=== PATIENT | male | born 1975 | race Caucasian/White ===

== ENCOUNTER 2016-08-21 22:54 | Emergency (ER) | payer OTHER ==
[~2016-08-21] VITALS: Ht 182.9 cm; Wt 76.0 kg
[~2016-08-21 22:54] MED LIST: BACT800T5 PO; CELE10TA9 PO; CLIN1CAP5 PO; CLON2TAB PO; ROXI30TA14 PO; SULF-154 PO; TIZA4 PO
[2016-08-21 23:02] VITALS: BP 147/89; PULSE 103; RESP 18; TEMP 98.4; O2SAT 98
[2016-08-21] MEDS ORDERED: OXYC30TA PO (23:10)
[2016-08-21] MEDS ORDERED: TIZA4 PO (23:10)
--- NOTE | 2016-08-21 23:11 | PD ---
HPI Chief Complaint: Psychiatric Symptoms Time Seen by Provider: 23:05 Travel History International Travel<30 days: No Contact w/Intl Traveler<30days: No History of Present Illness HPI The patient is a 41 year old male who presents to the [facility] emergency department with a history of reportedly accidentally overdosing on heroin prior to arrival. He reports that he does not normally use heroin and was not sure how much to inject. The patient developed agonal respirations and his friend called ambulance services. The patient was noted to have O2 saturations in the 50s on their arrival with agonal breathing. The patient continued to have a pulse with sinus tachycardia in the 130s. The patient was bagged while IV access was obtained and the patient was given Narcan 0.4 mg IV. The patient became awake and alert. The patient unfortunately was belligerent and was refusing to cooperate, therefore the police placed him under a Cain act due to a concern for his safety. The patient reports that he does have a history of depression. He is not on medication for it currently. He denies having suicidal or homicidal ideations at this time. He reports that he has been Cain acted in the past, a year ago when he became depressed over a friend dying. Otherwise on review of systems, the patient denies any recent fevers, cough, congestion, neck pain, chest pain, shortness of breath, abdominal pain, vomiting, diarrhea, urinary symptoms, or neurologic symptoms. [facility] Past Medical History Narrative Medical The patient's past medical history is significant for chronic back pain, headaches, degenerative disc disease. Anxiety: Yes Depression: Yes Cancer: No Cardiovascular Problems: No Diabetes: No Genitourinary: No Hepatitis: Yes (HEPATITIS B,C) Immune Disorder: No Neurologic: Yes Psychiatric: Yes Reproductive: No Respiratory: No Seizures: Yes (when using crack cocaine last 2006) Thyroid Disease: No Past Surgical History Narrative Surgical The patient's past surgical history is reportedly none. AICD: No Arteriovenous Shunt: No Joint Replacement: No Pacemaker: No Social History Alcohol Use: No Tobacco Use: Yes (OCCASIONALLY ) Substance Use: Yes Allergies-Medications (Allergen,Severity, Reaction): Coded Allergies: *MDRO Multi-Drug Resistant Organism (Verified Adverse Reaction, Unknown, 11/28/15) MRSA (thigh wound) - 09/20/2015; MRSA (knee-11/24/15) Reported Meds & Prescriptions Reported Meds & Active Scripts Active Reported Zanaflex (Tizanidine HCl) 4 Mg Tab 4 Mg PO TID Oxycodone (Oxycodone HCl) 30 Mg Tab 30 Mg PO Q6H PRN Narrative Medication Oxycodone and Zanaflex are prescribed to him due to his chronic back pain and muscle spasms. Review of Systems Except as stated in HPI: all other systems reviewed are Neg General / Constitutional: No: Fever Eyes: No: Visual changes HENT: No: Headaches Cardiovascular: No: Chest Pain or Discomfort Respiratory: Positive: Shortness of Breath Gastrointestinal: No: Abdominal Pain Genitourinary: No: Dysuria Musculoskeletal: No: Pain Skin: No Rash Neurologic: Positive: Change in Mentation, No: Weakness, Focal Abnormalities, Coordination Problem, Slurred Speech, Sensory Disturbance Psychiatric: Positive: Substance Abuse, No: Depression Endocrine: No: Polydipsia Hematologic/Lymphatic: No: Easy Bruising Physical Exam Narrative General: The patient is a well-developed well-nourished male in no acute distress. Head and Neck exam: Head is normocephalic atraumatic. Eyes: EOMI, pupils are equal round and reactive to light. Nose: Midline septum with pink mucous membranes Mouth: Dentition unremarkable. Moist mucus membranes. Posterior oropharynx is not erythematous. No tonsillar hypertrophy. Uvula midline. Airway patent. Neck: No palpable lymphadenopathy. No nuchal rigidity. No thyromegaly. Cardiovascular: Regular rate and rhythm without murmurs, gallops, or rubs. Lungs: Clear to auscultation bilaterally. No wheezes, rhonchi, or rales. Abdomen: Soft, without tenderness to palpation in all 4 quadrants of the abdomen. No guarding, rebound, or rigidity. Normal bowel sounds are audible. No tenderness on palpation of McBurney's point. Negative [place] sign. Extremities: No clubbing, cyanosis, or edema. 2+ pulses in all 4 extremities. No calf tenderness on palpation. Back: No costovertebral angle tenderness to palpation. Neurologic Exam: Grossly nonfocal. Skin Exam: No rash noted. Intact skin that is warm and dry. Data Data Last Documented VS Vital Signs Date Time Temp Pulse Resp B/P Pulse Ox O2 Delivery O2 Flow Rate FiO2 08/22/16 06:10 86 19 123/65 99 Room Air 08/21/16 23:02 98.4 Orders Electrocardiogram (08/21/16 23:05) Complete Blood Count With Diff (08/21/16 23:05) Comprehensive Metabolic Panel (08/21/16 23:05) Urinalysis - C+S If Indicated (08/21/16 23:05) Chest, Single Ap (08/21/16 23:05) Iv Access Insert/Monitor (08/21/16 23:05) Ecg Monitoring (08/21/16 23:05) Oximetry (08/21/16 23:05) Psych Screen (08/21/16 23:05) Drug Screen, Random Urine (08/21/16 23:05) Alcohol (Ethanol) (08/21/16 23:05) Salicylates (Aspirin) (08/21/16 23:05) Tylenol (Acetaminophen) (08/21/16 23:05) Sodium Chlorid 0.9% 500 Ml Inj (Ns 500 M (08/21/16 23:15) Diet Regular Basic (08/22/16 Breakfast) Labs Laboratory Tests Test 08/21/16 08/22/16 23:15 06:11 White Blood Count 6.9 TH/MM3 Red Blood Count 4.54 MIL/MM3 Hemoglobin 12.7 GM/DL Hematocrit 37.5 % Mean Corpuscular Volume 82.6 FL Mean Corpuscular Hemoglobin 28.0 PG Mean Corpuscular Hemoglobin 33.9 % Concent Red Cell Distribution Width 15.5 % Platelet Count 249 TH/MM3 Mean Platelet Volume 7.6 FL Neutrophils (%) (Auto) 56.0 % Lymphocytes (%) (Auto) 34.7 % Monocytes (%) (Auto) 6.7 % Eosinophils (%) (Auto) 2.1 % Basophils (%) (Auto) 0.5 % Neutrophils # (Auto) 3.8 TH/MM3 Lymphocytes # (Auto) 2.4 TH/MM3 Monocytes # (Auto) 0.5 TH/MM3 Eosinophils # (Auto) 0.1 TH/MM3 Basophils # (Auto) 0.0 TH/MM3 CBC Comment DIFF FINAL Differential Comment Salicylates Level LESS THAN 1.7 MG/DL Sodium Level 139 MEQ/L Potassium Level 3.7 MEQ/L Chloride Level 104 MEQ/L Carbon Dioxide Level 24.9 MEQ/L Anion Gap 10 MEQ/L Blood Urea Nitrogen 16 MG/DL Creatinine 1.58 MG/DL Estimat Glomerular Filtration 49 ML/MIN Rate Random Glucose 121 MG/DL Calcium Level 9.6 MG/DL Total Bilirubin 0.5 MG/DL Aspartate Amino Transf 32 U/L (AST/SGOT) Alanine Aminotransferase 34 U/L (ALT/SGPT) Alkaline Phosphatase 143 U/L Total Protein 7.2 GM/DL Albumin 3.6 GM/DL Acetaminophen Level LESS THAN 2.0 MCG/ML Ethyl Alcohol Level LESS THAN 3 MG/DL Urine Color YELLOW Urine Turbidity CLEAR Urine pH 5.5 Urine Specific [place] 1.016 Urine Protein TRACE mg/dL Urine Glucose (UA) NEG mg/dL Urine Ketones NEG mg/dL Urine Occult Blood NEG Urine Nitrite NEG Urine Bilirubin NEG Urine Urobilinogen LESS THAN 2.0 MG/DL Urine Leukocyte Esterase NEG Urine RBC 1 /hpf Urine WBC 3 /hpf Microscopic Urinalysis Comment CULT NOT INDICATED Urine Opiates Screen POS Urine Barbiturates Screen NEG Urine Amphetamines Screen POS Urine Benzodiazepines Screen POS Urine Cocaine Screen POS Urine Cannabinoids Screen NEG MDM Medical Decision Making Medical Screen Exam Complete: Yes Emergency Medical Condition: Yes Medical Record Reviewed: Yes Interpretation(s) Last Impressions Chest X-Ray 08/21/16 3409 Signed Impressions: Service Date/Time: Sunday, August 21, 2016 23:14 - CONCLUSION: No evidence of acute cardiopulmonary disease. Rodolfo Mead MD Differential Diagnosis Accidental heroin overdose, versus intentional overdose, versus substance induced mood disorder, versus exacerbation of depression Narrative Course During the course of the patients emergency department visit, the patients history, examination, and differential diagnosis were reviewed with the patient. The patient had IV access obtained and blood work sent for analysis. The patient was placed on a monitoring and evaluation advisor with oximetry and blood pressure monitoring. The patient was placed under a Cain act by the police. Cain act will be reviewed. The patient will have a psychiatric screen. The patient will be observed in the emergency department for any change in his mentation or respiratory depression as the Narcan wears off. The patient had an ECG done on arrival that shows a sinus rhythm heart rate of 84, QRS duration is 92 ms, QTC 427 ms, no acute ST segment elevation or depression, T waves are inverted in V1. The patient was initially provided normal saline a 500 mL bolus. The patients laboratory studies were reviewed and remarkable for a white count of 6.9, hemoglobin 12.7, platelets 249 with a normal differential, CMP is remarkable for creatinine of 1.58, glucose 121, alkaline phosphatase 143, urine drug screen is positive for opiates, amphetamines, benzodiazepine, and cocaine. Salicylate is less than 1.7, acetaminophen less than 2, alcohol less than 3, urinalysis is unremarkable. Radiology studies were reviewed and remarkable for a chest x-ray that shows no acute cardiopulmonary disease. The patient remained awake, responsive during his emergency department observation. The patient has been medically cleared for evaluation by the psychiatric screener under a Cain act. Diagnosis Primary Impression: Accidental heroin overdose Qualified Code: T40.1X1A - Accidental heroin overdose, initial encounter Oumou Smith MD Aug 21, 2016 23:11
[2016-08-21 23:15] VITALS: RESP 18; O2SAT 99
[2016-08-21] MEDS ORDERED: SODIUM CHLORID 0.9% 500 ML INJ 500 ML IV ONE (23:15)
[2016-08-21 23:39] LABS: AUTOMATED NEUTROPHIL # 3.8 TH/MM3 (1.8-7.7); BASOPHIL % 0.5 % (0.0-2.0); EOSINOPHIL # 0.1 TH/MM3 (0-0.4); EOSINOPHIL % 2.1 % (0.0-4.0); HEMATOCRIT 37.5 % (39.0-51.0); HEMO FLAGS DIFF FINAL; LYMPH % 34.7 % (9.0-44.0); LYMPHOCYTE # 2.4 TH/MM3 (1.0-4.8); MEAN CELL VOLUME 82.6 FL (80.0-100.0); MEAN CORPUSCULAR HGB CONC 33.9 % (32.0-36.0); MONO % 6.7 % (0.0-8.0); PLATELET COUNT 249 TH/MM3 (150-450); RED BLOOD COUNT 4.54 MIL/MM3 (4.50-5.90); RED CELL DISTRIBUTION WIDTH 15.5 % (11.6-17.2); WHITE BLOOD COUNT 6.9 TH/MM3 (4.0-11.0)
--- NOTE | 2016-08-21 23:42 | RADRPT ---
EXAM DATE/TIME: 08/21/2016 23:14 [place] COMPARISON: No previous studies available for comparison. INDICATIONS : Cough. MEDICAL HISTORY : Hepatitis C. Hepatitis B. IV drug abuse. Seizures. Chronic back pain. Asthma, Multiple skin infection s and abscesses. Paresthesia SURGICAL HISTORY : None. ENCOUNTER: Initial ACUITY: 1 day PAIN SCORE: 0/10 LOCATION: Bilateral chest FINDINGS: A single view of the chest demonstrates the lungs to be symmetrically aerated without evidence of mas s, infiltrate or effusion. The cardiomediastinal contours are unremarkable. Osseous structures are intact. CONCLUSION: No evidence of acute cardiopulmonary disease. Rodolfo Mead MD on August 21, 2016 at 23:40 Board Certified Radiologist. This report was verified electronically.
[2016-08-22 00:15] LABS: ALKALINE PHOSPHATASE 143 U/L (45-117); ALT (GPT) 34 U/L (12-78); ANION GAP 10 MEQ/L (5-15); AST (GOT) 32 U/L (15-37); BICARBONATE 24.9 MEQ/L (21.0-32.0); BLOOD UREA NITROGEN 16 MG/DL (7-18); CHLORIDE 104 MEQ/L (98-107); GLOMERULAR FILTRATION RATE 49 ML/MIN (>89); POTASSIUM 3.7 MEQ/L (3.5-5.1); SODIUM (NA) 139 MEQ/L (136-145); TOTAL BILIRUBIN ADULT 0.5 MG/DL (0.2-1.0)
[2016-08-22 00:16] LABS: ACETAMINOPHEN LESS THAN 2.0 MCG/ML (10.0-30.0)
[2016-08-22 01:00] VITALS: BP 145/82; PULSE 76; RESP 16; O2SAT 98
[2016-08-22 02:14] VITALS: BP 127/81; PULSE 81; RESP 18; O2SAT 100
[2016-08-22 06:10] VITALS: BP 123/65; PULSE 86; RESP 19; O2SAT 99
[2016-08-22 06:45] LABS: BLOOD, URINE NEG (NEG); COMMENT (UR) CULT NOT INDICATED; CULTURE IF INDICATED CULT NOT INDICATED; GLUCOSE,URINE NEG (NEG); KETONE, URINE NEG (NEG); NITRITE,URINE NEG (NEG); PH, URINE 5.5 (5.0-8.5); URINE COLOR YELLOW (YELLW/STRAW)
[2016-08-22 06:54] LABS: AMPHETAMINE, URINE POS (NEG); BARBITURATES, URINE NEG (NEG); COCAINE, URINE POS (NEG)
--- NOTE | 2016-08-22 10:57 | EKG ---
Date Performed: 08/22/2016 Time Performed: 00:26:05 PTAGE: 41 years EKG: Sinus rhythm NORMAL ECG PREVIOUS TRACING : 09/19/2015 22.42 Compared to prior tracing no significant change DOCTOR: Robel Parsons Interpretating Date/Time 08/22/2016 10:56:13
--- NOTE | 2016-08-22 11:32 | PD.PSY.CON ---
Provisional Diagnosis Admission Date Peytona I. Polysubstance dependence, including amphetamines, cocaine, heroine, benzodiazepines, cannabis, self reported anxiety and PTSD Peytona II. Deferred Peytona III. HTN Peytona IV. History of multiple drug use Peytona V. 55 History of Present Illness Service Psychiatry Consult Requested By Primary Care Physician No Primary Care Physician HPI The patient is a 41 year old man, who lives with a friend in [facility], single, unemployed, with psychiatric history of self reported PTSD, anxiety, polysubstance dependence, including heroin, crack cocaine, cannabis, amphetamines, benzodiazepines, no previous psychotic hospitalizations, no previous suicidal attempts, medical history hypertension, who presents to the [facility] emergency department with a history of reportedly accidentally overdosing on heroin prior to arrival. He reports that he does not normally use heroin and was not sure how much to inject. The patient developed agonal respirations and his friend called ambulance services. The patient was noted to have O2 saturations in the 50s on their arrival with agonal breathing. The patient continued to have a pulse with sinus tachycardia in the 130s. The patient was bagged while IV access was obtained and the patient was given Narcan 0.4 mg IV. The patient became awake and alert. The patient was belligerent and was refusing to cooperate, therefore the police placed him under a Cain act due to a concern for his safety. On psychiatric evaluation today patient is clinically sober, requesting to be discharged. Patient clarifies that he uses drugs every day, he says that is his choice, he is not interested in detox/rehabilitation. He reports good mood, denies depression, denies anxiety, denies suicidal or homicidal ideation, denies visual and auditory hallucinations. He is not on medication for it currently. After episode of aggressive behavior last night patient has been calm, cooperative and easy to deal with. Oriented 3. Reports daily use of "what ever drug I find". Review of Systems Constitutional: DENIES: Diaphoretic episodes, Fatigue, Fever, Weight gain, Weight loss, Chills, Dizziness, Change in appetite, Night Sweats Endocrine: DENIES: Heat/cold intolerance, Polydipsia, Polyuria, Polyphagia Ears, nose, mouth, throat: DENIES: Tinnitus, Hearing loss, Vertigo, Nasal discharge, Oral lesions, Throat pain, Hoarseness, Ear Pain, Running Nose, Epistaxis, Sinus Pain, Toothache, Odynophagia Respiratory: DENIES: Apneas, Cough, Snoring, Wheezing, Hemoptysis, Sputum production, Shortness of breath Cardiovascular: DENIES: Chest pain, Palpitations, Syncope, Dyspnea on Exertion , PND, Lower Extremity Edema, Orthopnea, Claudication Gastrointestinal: DENIES: Abdominal pain, Black stools, Bloody stools, Constipation, Diarrhea, Nausea, Vomiting, Difficulty Swallowing, Anorexia Genitourinary: DENIES: Sexual dysfunction, Urinary frequency, Urinary incontinence, Urgency, Hematuria, Dysuria, Nocturia, Penile Discharge, Testicular Pain, Testicular Swelling Integumentary: DENIES: Abnormal pigmentation, Nail changes, Pruritus, Rash Hematologic/lymphatic: DENIES: Bruising, Lymphadenopathy Immunologic/allergic: DENIES: Eczema, Urticaria Neurologic: DENIES: Abnormal gait, Headache, Localized weakness, Paresthesias, Seizures, Speech Problems, Tremor, Poor Balance Psychiatric: DENIES: Anxiety, Confusion, Mood changes, Depression, Hallucinations, Agitation, Suicidal Ideation, Homicidal Ideation, Delusions Past Family Social History Coded Allergies: *MDRO Multi-Drug Resistant Organism (Verified Adverse Reaction, Unknown, 11/28/15) MRSA (thigh wound) - 09/20/2015; MRSA (knee-11/24/15) Reported Medications Tizanidine (Zanaflex)4 Mg Tab4 Mg PO TID Ref 0 08/21/16 Oxycodone 30 Mg Tab30 Mg PO Q6H PRN (PAIN) Ref 0 08/21/16 Family History Patient denies family psychiatric history Social History Patient was born and raised in [place], he lives in [place] with a friend, unemployed, single, highest level of education is high school Patient's Strengths (min. 2) Verbal communication Physical Exam Physical exam, no withdrawal symptoms, no tremors, no EPS, no stiffness, no psychomotor retardation or agitation Vital Signs Vital Signs Date Time Temp Pulse Resp B/P Pulse Ox O2 Delivery O2 Flow Rate FiO2 08/22/16 06:10 86 19 123/65 99 Room Air 08/21/16 23:02 98.4 Lab Results Labs Laboratory Tests Test 08/21/16 08/22/16 23:15 06:11 White Blood Count 6.9 TH/MM3 Red Blood Count 4.54 MIL/MM3 Hemoglobin 12.7 GM/DL Hematocrit 37.5 % Mean Corpuscular Volume 82.6 FL Mean Corpuscular Hemoglobin 28.0 PG Mean Corpuscular Hemoglobin 33.9 % Concent Red Cell Distribution Width 15.5 % Platelet Count 249 TH/MM3 Mean Platelet Volume 7.6 FL Neutrophils (%) (Auto) 56.0 % Lymphocytes (%) (Auto) 34.7 % Monocytes (%) (Auto) 6.7 % Eosinophils (%) (Auto) 2.1 % Basophils (%) (Auto) 0.5 % Neutrophils # (Auto) 3.8 TH/MM3 Lymphocytes # (Auto) 2.4 TH/MM3 Monocytes # (Auto) 0.5 TH/MM3 Eosinophils # (Auto) 0.1 TH/MM3 Basophils # (Auto) 0.0 TH/MM3 CBC Comment DIFF FINAL Differential Comment Salicylates Level LESS THAN 1.7 MG/DL Sodium Level 139 MEQ/L Potassium Level 3.7 MEQ/L Chloride Level 104 MEQ/L Carbon Dioxide Level 24.9 MEQ/L Anion Gap 10 MEQ/L Blood Urea Nitrogen 16 MG/DL Creatinine 1.58 MG/DL Estimat Glomerular Filtration 49 ML/MIN Rate Random Glucose 121 MG/DL Calcium Level 9.6 MG/DL Total Bilirubin 0.5 MG/DL Aspartate Amino Transf 32 U/L (AST/SGOT) Alanine Aminotransferase 34 U/L (ALT/SGPT) Alkaline Phosphatase 143 U/L Total Protein 7.2 GM/DL Albumin 3.6 GM/DL Acetaminophen Level LESS THAN 2.0 MCG/ML Ethyl Alcohol Level LESS THAN 3 MG/DL Urine Color YELLOW Urine Turbidity CLEAR Urine pH 5.5 Urine Specific [place] 1.016 Urine Protein TRACE mg/dL Urine Glucose (UA) NEG mg/dL Urine Ketones NEG mg/dL Urine Occult Blood NEG Urine Nitrite NEG Urine Bilirubin NEG Urine Urobilinogen LESS THAN 2.0 MG/DL Urine Leukocyte Esterase NEG Urine RBC 1 /hpf Urine WBC 3 /hpf Microscopic Urinalysis Comment CULT NOT INDICATED Urine Opiates Screen POS Urine Barbiturates Screen NEG Urine Amphetamines Screen POS Urine Benzodiazepines Screen POS Urine Cocaine Screen POS Urine Cannabinoids Screen NEG Mental Status Examination Appearance man, good hygiene, age appearing, calm and cooperative Speech: Unremarkable Orientation: x3 Memory: Unremarkable Thought Process: Logical Thought Content: Unremarkable Hallucination Type: None Suicidal Ideation: No Homicidal Ideation: No Previous Homicide Attempts: No Insight: Good Affect: Good Mood: Appropriate Motor Activity: Normal gait Assessment & Plan Problem List: (1) Polysubstance dependence Assessment & Plan: On psychiatric evaluation today the patient does not present any agitation, no aggressive behavior, no hostility, he is calm, cooperative and even pleasant. Patient denies symptoms of depression, anxiety, az or psychosis. Patient denies suicidal and homicidal ideation, he denies visual and auditory hallucinations. Patient is now clinically sober, even though detox was offered to the patient he declined. Initial aggressive behavior and agitation in the ER was probably secondary to substance intoxication, patient was positive for amphetamines, cocaine, heroine and benzodiazepines. At this moment the patient does not meet criteria for psychiatric admission. Extensive support, motivation and psycho education provided. Cain act will be lifted. ICD Code: F19.20 Assessment & Plan Estimated LOS: Jethro Goldsmith MD Aug 22, 2016 11:32
== END 2016-08-22 09:18 | disposition home or self-care (01) ==
LOC: NEPE 22:54 → NEPJ 08-22 09:18
DX: T40.1X1A Poisoning by heroin, accidental (unintentional), initial encounter (principal); R00.0 Tachycardia, unspecified
CPT/HCPCS: 71010; 80053; 80307; 81001; 85025; 93005; 96360; 99285; J7040

== ENCOUNTER 2017-03-03 11:01 | Emergency (ER) | payer SELFPAY ==
[~2017-03-03] VITALS: Ht 175.3 cm; Wt 75.0 kg
[~2017-03-03 11:01] MED LIST changes: -BACT800T5 PO; -CELE10TA9 PO; -CLIN1CAP5 PO; -CLON2TAB PO; +OXYC30TA PO; -ROXI30TA14 PO; -SULF-154 PO
--- NOTE | 2017-03-03 11:11 | PD ---
HPI Chief Complaint: overdose Time Seen by Provider: 11:07 Travel History International Travel<30 days: No Contact w/Intl Traveler<30days: No Traveled to known affect area: No History of Present Illness HPI The patient is a 42-year-old male who presents to the emergency department via EMS after an accidental opiate overdose. According to EMS the patient was found unresponsive, breathing on his own, from an apparent opiate overdose. The patient apparently thought he was injecting heroin when he apparently injected fentanyl. The patient was administer Narcan prior to arrival, upon arrival the patient's GCS is 15. He is awake, alert, talking. The patient does state his friend's place ice down his pants in an attempt to wake him up. He does have a history of previous overdose. The patient does not want any medical treatment upon arrival and is asking to leave the emergency department. He denies any suicidal ideation, states he overdose was accidental. He denies any chest pain, shortness breath, nausea, vomiting, or abdominal pain. PFSH Past Medical History Anxiety: Yes Depression: Yes Cancer: No Cardiovascular Problems: No Diabetes: No Diminished Hearing: No Genitourinary: No Hepatitis: Yes (HEPATITIS B,C) Immune Disorder: No Neurologic: Yes Psychiatric: Yes (PTSD) Reproductive: No Respiratory: No Seizures: Yes (when using crack cocaine last 2006) Thyroid Disease: No Past Surgical History AICD: No Arteriovenous Shunt: No Joint Replacement: No Pacemaker: No Social History Alcohol Use: No Tobacco Use: Yes (OCCASIONALLY ) Substance Use: Yes Allergies-Medications (Allergen,Severity, Reaction): Coded Allergies: *MDRO Multi-Drug Resistant Organism (Verified Adverse Reaction, Unknown, 11/28/15) MRSA (thigh wound) - 09/20/2015; MRSA (knee-11/24/15) Reported Meds & Prescriptions Reported Meds & Active Scripts Active Reported Zanaflex (Tizanidine HCl) 4 Mg Tab 4 Mg PO TID Oxycodone (Oxycodone HCl) 30 Mg Tab 30 Mg PO Q6H PRN Review of Systems Except as stated in HPI: all other systems reviewed are Neg HENT: No: Lightheadedness Cardiovascular: No: Chest Pain or Discomfort, Diaphoresis Respiratory: No: Shortness of Breath Gastrointestinal: No: Nausea, Vomiting, Abdominal Pain Psychiatric: Positive: Substance Abuse, No: Suicidal Ideations Physical Exam Narrative GENERAL: Awake, alert, pleasant 42-year-old male who appears his stated age and is in no acute respiratory distress. SKIN: Focused skin assessment warm/dry. HEAD: Atraumatic. Normocephalic. EYES: Pupils equal and round. No scleral icterus. No injection or drainage. ENT: No nasal bleeding or discharge. Mucous membranes pink and moist. NECK: Trachea midline. No JVD. CARDIOVASCULAR: Regular rate and rhythm. No murmur appreciated. RESPIRATORY: No accessory muscle use. Clear to auscultation. Breath sounds equal bilaterally. MUSCULOSKELETAL: No obvious deformities. No clubbing. No cyanosis. No edema. NEUROLOGICAL: Awake and alert. No obvious cranial nerve deficits. Motor grossly within normal limits. Normal speech. Alert and oriented 5. Follows commands without difficulty. PSYCHIATRIC: Appropriate mood and affect; insight and judgment normal. MDM Medical Decision Making Medical Screen Exam Complete: Yes Emergency Medical Condition: Yes Medical Record Reviewed: Yes Differential Diagnosis Differential diagnosis includes opiate overdose, fentanyl overdose, heroin overdose, illicit drug use. Narrative Course The patient was seen by EMS prior to arrival and administer Narcan, upon arrival the patient is awake, alert, and oriented 5. He denied any physical complaints and is requesting to be discharged. The patient is awake and alert, he is able to make a competent decision. I did have a discussion with the patient regarding the opiate overdose and the fact that the can could wear off and the opiate could once again have major effects including respiratory depression and . The patient states he understands these risks and is able to take these risks, he is requesting to sign out against registered medical transcriptionist. He appears able to make a competent decision, therefore, the patient left against registered medical transcriptionist. Procedures Procedure Narrative AMA: The risks of leaving against medical advice without further evaluation treatment were discussed with the patient. These risks include cardiac dysfunction, cardiac dysrhythmia, possible heart attack, possible stroke or . The patient indicated understanding of these risks and appeared to have the capacity to make this decision. Diagnosis Primary Impression: Opiate or related narcotic overdose Qualified Codes: T40.601A - Poisoning by unspecified narcotics, accidental ( unintentional), initial encounter Additional Instructions: Return if symptoms worsen or progress. Follow-up with her primary physician and /or [facility]. Stop using illegal drugs. Med/Other Pt SpecificInfo: No Change to Meds Disposition: AGAINST MEDICAL ADVICE Baljinder Phillips MD Mar 03, 2017 11:11
[2017-03-03 11:12] VITALS: BP 129/87; PULSE 87; RESP 18; TEMP 97.4; O2SAT 98
== END 2017-03-03 11:11 | disposition left against medical advice (07) ==
LOC: NEPE 11:01
DX: T40.601A Poisoning by unspecified narcotics, accidental (unintentional), initial encounter (principal); F41.9 Anxiety disorder, unspecified; F32.9 Major depressive disorder, single episode, unspecified; F43.10 Post-traumatic stress disorder, unspecified; R56.9 Unspecified convulsions; Z86.19 Personal history of other infectious and parasitic diseases; Z72.0 Tobacco use; Z79.899 Other long term (current) drug therapy
CPT/HCPCS: 99283

== ENCOUNTER 2018-01-02 01:05 | Observation (INO) ==
[2018-01-02] MEDS ORDERED: Vancomycin Inj 1,200 MG in Sodium Chlor 0.9% Inj 250 ML IV.SIG STA (01:48)
[2018-01-02] MEDS ORDERED: Piperacil/Tazo 4.5 GM Premix 4.5 GM/100 ML BAG IV.SIG STA (01:48)
[2018-01-02] MEDS ORDERED: Sod Chloride 0.9% Inj 1,000 ML IV.SIG SCH ×2 (02:00)
[2018-01-02] MEDS ORDERED: Sod Chloride 0.9% Inj 400 ML IV.SIG SCH (02:00)
[2018-01-02] MEDS ORDERED: Ketorolac Inj 30 MG/ML (IVP) Vial IV.PUSH ONE ×2 (02:03→12:06)
--- NOTE | 2018-01-02 02:24 | ED ---
HPI General Chief complaint: Dental/Oral Stated complaint: Dental Time Seen by Provider: 01/02/18 01:31 Source: patient Mode of arrival: ambulatory Limitations: no limitations History of Present Illness HPI narrative: Patient is a 42-year-old male, past medical history significant for IV drug use with most recent use earlier this week, who presents with complaint of several days of left lower dental pain. He also complains of chills and thinks he may have had a fever. He also complains of malaise and intermittent palpitations without dyspnea. No abdominal pain, nausea, vomiting , diarrhea. No headache, neck pain, back pain. No numbness or weakness. Onset (ago): day(s) Radiation: non-radiation Severity: moderate Pain Consistency: constant Relieving factors: none Exacerbating factors: eating Associated symptoms: Reports malaise Treatments prior to arrival: Reports none Related Data Home Medications Medication Instructions Recorded Confirmed oxycodone 30 mg PO Q4-6H 09/01/17 01/02/18 tamsulosin [Flomax] 0.4 mg PO EVERY OTHER DAY 09/01/17 01/02/18 tizanidine [Zanaflex] 4 mg PO BID 09/01/17 01/02/18 Allergies Allergy/AdvReac Type Severity Reaction Status Date / Time *MDRO Multi-Drug Resistant AdvReac Unknown Uncoded 11/28/15 11:27 Organism Review of Systems ROS: all other systems reviewed are negative [facility] Medical History Medical History History of rib fracture (Acute) Herniated disc (Acute) Surgical History Surgical History No history of previous surgery (Acute) Social History Social History Substance History: Past History Smoking Status: Never smoker Tobacco Type: E-Cigarettes How Often Do You Have a Drink Containing Alcohol: Monthly or less Recent Travel in [facility] within the Last 8 Weeks: No Recent Out of Country Travel within the Last 8 Weeks: No Immunization History Tetanus Immunization: Unsure Exam Narrative Exam Narrative: GENERAL: Ill-appearing male, crying, holding onto the L lower side of his mouth. SKIN: Focused skin assessment warm. Clammy. No Osler nodes. Possible splinter hemorrhage on toenail of R foot. Janeway lesion appearing lesion to R palm. HEAD: Atraumatic. Normocephalic. EYES: Pupils equal and round. No scleral icterus. No injection or drainage. ENT: No nasal bleeding or discharge. Mucous membranes pink and moist. No posterior oropharyngeal erythema nor edema. He has a cracked left lower molar. No gingival abscess appreciated. No sublingual/submental/submandibular swelling. NECK: Trachea midline. No JVD. CARDIOVASCULAR: Tachycardic but regular. No murmur appreciated. RESPIRATORY: No accessory muscle use. Clear to auscultation. Breath sounds equal bilaterally. GASTROINTESTINAL: Abdomen soft, non-tender, nondistended. Hepatic and splenic margins not palpable. MUSCULOSKELETAL: No obvious deformities. No clubbing. No cyanosis. No edema. No C, T, L-spine tenderness. NEUROLOGICAL: Awake and alert. No obvious cranial nerve deficits. Motor within normal limits. Normal sensation. Normal speech. PSYCHIATRIC: Anxious. Procedures Nerve Block Nerve Block 1: Anesthetic Used: bupivacaine 0.25% Amount of anesthesia used (mL): 1.5 Intraoral Nerve Block: mental Procedure Successful: Yes Patient Tolerated Procedure: well and no complications Course Initial Documented Vital Signs Temperature 99.9 F H 01/02/18 01:09 Pulse Rate 121 H 01/02/18 01:09 Respiratory Rate 18 01/02/18 01:09 Blood Pressure 154/96 H 01/02/18 01:09 Pulse Oximetry 100 01/02/18 01:09 Last Documented Vital Signs Temperature 99.9 F H 01/02/18 01:09 Pulse Rate 100 H 01/02/18 03:03 Respiratory Rate 18 01/02/18 03:03 Blood Pressure 153/68 H 01/02/18 03:03 Pulse Oximetry 100 01/02/18 03:03 Medical Decision Making [facility] Narrative Medical decision making narrative: Patient is a 42 yom with h/o IVDA who presents with complaint of dental pain. He has broken tooth without drainable abscess and dental block was done which provided pain relief. He was tachycardic and slightly ill appearing on arrival, thus septic workup was initiated with 3 blood cultures drawn prior to antibiotics to aid in ruling in/ out endocarditis. He has been admitted to Dr Pillai for observation and blood culture rule out. Medical Screen Exam Complete: Yes Emergency Medical Condition: Yes Differential Diagnosis Differential Diagnosis: Differential diagnosis includes but is not limited to sepsis, endocarditis, pneumonia. Medical Records Medical records reviewed: Yes I reviewed the patient's medical records. Lab Data Lab results reviewed: Yes I reviewed the patient's lab results. Result diagrams: 01/02/18 02:25 01/02/18 02:25 Lab Results 01/02/18 01/02/18 01/02/18 Range/Units 02:20 02:25 02:25 WBC 6.5 (4.0-11.0) th/mm3 RBC 4.61 (4.50-5.90) mil/mm3 Hgb 13.0 (13.0-17.0) gm/dL Hct 36.4 L (39.0-51.0) % MCV 79.0 L (80.0-100.0) fL MCH 28.3 (27.0-34.0) pg MCHC 35.8 (32.0-36.0) % RDW 16.5 (11.6-17.2) % Plt Count 124 L (150-450) th/mm3 MPV 7.9 (7.0-11.0) fL Neut % (Auto) 83.0 H (16.0-70.0) % Lymph % (Auto) 10.3 (9.0-44.0) % [place] % (Auto) 5.9 (0.0-8.0) % Eos % (Auto) 0.6 (0.0-4.0) % Baso % (Auto) 0.2 (0.0-2.0) % Neut # (Auto) 5.4 (1.8-7.7) th/mm3 Lymph # (Auto) 0.7 L (1.0-4.8) th/mm3 [place] # (Auto) 0.4 (0.0-0.9) th/mm3 Eos # (Auto) 0.0 (0.0-0.4) th/mm3 Baso # (Auto) 0.0 (0.0-0.2) th/mm3 WBC Differential . Differential Comment Auto diff final Sodium 138 (136-145) meq/L Potassium 3.9 (3.5-5.1) meq/L Chloride 100 (98-107) meq/L Carbon Dioxide 33.2 H (21.0-32.0) meq/L Anion Gap 5 (5-15) meq/L BUN 11 (7-18) mg/dL Creatinine 0.94 (0.60-1.30) mg/dL Estimated GFR 89 (>89) mL/min Random Glucose 109 H (74-106) mg/dL Lactic Acid 1.1 (0.4-2.0) mmol/L Calcium 9.1 (8.5-10.1) mg/dL Magnesium 2.0 (1.5-2.5) mg/dL Total Bilirubin 1.4 H (0.2-1.0) mg/dL AST 56 H (15-37) U/L ALT 56 (12-78) U/L Alkaline Phosphatase 155 H (45-117) U/L Total Protein 7.8 (6.4-8.2) g/dL Albumin 3.7 (3.4-5.0) g/dL Imaging Data Attestation: I personally reviewed and interpreted this imaging study as follows : Radiologist's impression: Chest X-Ray 01/02/18 01:48 CONCLUSION: No acute cardiopulmonary disease identified. Discharge Plan Discharge Disposition Patient Disposition: 30 Still Patient Discharge Condition Condition: Fair Discharge Details Diagnosis: Toothache, Active intravenous drug use Physicians Team ED Provider: Roopa Cain Primary Care Provider: Primary Care Tiki Holt Attending Provider: Connie Pillai Discharge Interventions Interventions: Vital Signs Last Done: 01/02/18 03:03 Status ED Status: Admitted Observation Patient
--- NOTE | 2018-01-02 02:34 | XR ---
EXAM DATE: 01/02/2018 2:20 AM EST AGE/SEX: 42 years / Male INDICATIONS: . Chest tightness, shortness of breath. CLINICAL DATA: This is the patient's initial encounter. Patient reports that signs and symptoms have been present for 1 day and indicates a pain score of 1/10. MEDICAL/SURGICAL HISTORY: Hepatitis C. Asthma. None. COMPARISON: No prior exams available for comparison. FINDINGS: PA and lateral views of the chest. The lungs are clear. Cardiomediastinal silhouette with in normal limits. No evidence of pleural effusion or pneumothorax. CONCLUSION: No acute cardiopulmonary disease identified. Electronically signed by: Fab Hutchinson MD 01/02/2018 2:32 AM EST
[2018-01-02 02:37] LABS: Baso % (Auto) 0.2 % (0.0-2.0); Eos % (Auto) 0.6 % (0.0-4.0); Hematocrit 36.4 % (39.0-51.0); Lymph # (Auto) 0.7 th/mm3 (1.0-4.8); Lymph % (Auto) 10.3 % (9.0-44.0); Mean Corpuscular HGB Conc 35.8 % (32.0-36.0); Mean Corpuscular Hemoglobin 28.3 pg (27.0-34.0); Mean Platelet Volume 7.9 fL (7.0-11.0); Mono # (Auto) 0.4 th/mm3 (0.0-0.9); Mono % (Auto) 5.9 % (0.0-8.0); Neut # (Auto) 5.4 th/mm3 (1.8-7.7); Platelet Count 124 th/mm3 (150-450); Red Blood Count 4.61 mil/mm3 (4.50-5.90); Red Cell Distribution Width 16.5 % (11.6-17.2); White Blood Count 6.5 th/mm3 (4.0-11.0)
[2018-01-02 03:08] LABS: Alanine Aminotransferase 56 U/L (12-78); Albumin 3.7 g/dL (3.4-5.0); Anion Gap 5 meq/L (5-15); Aspartate Aminotransferase 56 U/L (15-37); Blood Urea Nitrogen 11 mg/dL (7-18); Calcium 9.1 mg/dL (8.5-10.1); Carbon Dioxide 33.2 meq/L (21.0-32.0); Chloride 100 meq/L (98-107); Glomerular Filtration Rate 89 mL/min (>89); Glucose,Random 109 mg/dL (74-106); Potassium 3.9 meq/L (3.5-5.1); Sodium 138 meq/L (136-145)
[2018-01-02 03:11] LABS: Alkaline Phosphatase 155 U/L (45-117); Total Protein 7.8 g/dL (6.4-8.2)
[2018-01-02] MEDS ORDERED: Acetaminophen 325 MG Tablet PO PRN (04:11)
[2018-01-02] MEDS ORDERED: Bisacodyl 10 MG Supp RECTAL PRN (04:11)
[2018-01-02 04:16] LABS: Bilirubin,Urine Negative (Negative); Clarity,Urine Clear (Clear); Color,Urine Yellow (Yellw/Straw); Glucose,Urine (UA) Negative (Negative); Leukocyte Esterase,Urine Negative (Negative); Mucus,Urine Few /lpf (Occasional); Nitrite,Urine Negative (Negative); Specific Gravity,Urine 1.019 (1.002-1.035)
[2018-01-02] MEDS ORDERED: Vancomycin Consult Pharmacy OTHER PRN (04:43)
--- NOTE | 2018-01-02 04:54 | P.HP ---
History of Present Illness Service: [facility] Primary Care Physician: No Primary Care Physician History of Present Illness: 42-year-old male with a past medical history significant for asthma, chronic back pain, hepatitis C and IV drug abuse presents to the emergency department for the evaluation of left lower tooth pain. The patient reports that he has a history of abscess on that tooth that previously drained on its own. He reports the abscess and pressure is back. He says he has had accompanying fevers and chills. He also endorses heart palpitations and shortness of breath. Complains of an achy chest pain. No abdominal pain. No nausea/ vomiting/diarrhea. No focal deficits. Back pain at chronic level. Review of Systems All other systems reviewed negative except as stated in [facility] - History History Provided By: Patient - Medical History Medical History: Medical History (Last Updated 01/02/18 @ 04:48 by Connie Pillai MD) Asthma Chronic back pain Hepatitis C History of rib fracture IV drug abuse Herniated disc - Surgical History Surgical History: Surgical History (Last Reviewed 01/02/18 @ 04:48 by Connie Pillai MD) No history of previous surgery - Family History Family History: Family History (Last Updated 01/02/18 @ 04:48 by Connie Pillai MD) Other Family history normal - Tobacco History Smoking Status: Never smoker Tobacco Type: E-Cigarettes - Alcohol History How Often Do You Have a Drink Containing Alcohol: Monthly or less - Substance Use History Substance History: Past History - Travel History Recent Travel in the [place] Within the Last 8 Weeks: No Recent Travel Out of the Country Within the Last 8 Weeks: No - Immunization History Tetanus Immunization: Unsure Medications and Allergies Active Medications: Active Medications Acetaminophen (Tylenol) 650 mg PO Q4H PRN PRN Reason: Temp > 100.4 Al Hydroxide/Mg Hydroxide (Milk Of Magnesia Liq) 30 ml PO Q12H PRN PRN Reason: Mild Constipation Bisacodyl (Dulcolax Supp) 10 mg RECTAL DAILY PRN PRN Reason: SEVERE CONSITIPATION Sodium Chloride (Ns Inj) 1,000 mls @ 0 mls/hr IV.SIG .Q0M MESSI Last Infusion: 01/02/18 03:02 Dose: Infused Sodium Chloride (Ns Inj) 400 mls @ 0 mls/hr IV.SIG .Q0M MESSI Last Infusion: 01/02/18 03:03 Dose: Infused Sodium Chloride (Ns Inj) 1,000 mls @ 0 mls/hr IV.SIG .Q0M MESSI Last Infusion: 01/02/18 03:02 Dose: Infused Piperacillin/Tazobactam/Dextrose (Zosyn 3.375 Gm Premix) 50 mls @ 100 mls/hr IV.SIG Q6H MESSI Lactulose (Lactulose Liq) 30 ml PO DAILY PRN PRN Reason: SEVERE CONSITIPATION Ondansetron HCl (Zofran Inj) 4 mg IV.PUSH Q6H PRN PRN Reason: NAUSEA OR VOMITING Pharmacy Profile Note (Vancomycin Consult Pharmacy) 1 each OTHER UNSCH PRN PRN Reason: Pharmacy to dose Sennosides (Senokot) 17.2 mg PO Q12H PRN PRN Reason: Moderate Constipation Allergies Allergy/AdvReac Type Severity Reaction Status Date / Time *MDRO Multi-Drug Resistant AdvReac Unknown Uncoded 11/28/15 11:27 Organism Home Medications Medication Instructions Recorded Confirmed Type oxycodone 30 mg PO Q4-6H 09/01/17 01/02/18 History tamsulosin [Flomax] 0.4 mg PO EVERY OTHER DAY 09/01/17 01/02/18 History tizanidine [Zanaflex] 4 mg PO BID 09/01/17 01/02/18 History Exam Vital signs: Vital Signs 01/02/18 01:09 01/02/18 03:03 01/02/18 04:31 Temperature 99.9 F H Pulse Rate 121 H 100 H 94 H Respiratory Rate 18 18 16 Blood Pressure 154/96 H 153/68 H 111/68 Pulse Oximetry 100 100 98 Intake & Output 01/01/18 01/01/18 01/02/18 06:59 18:59 06:59 Intake Total 2762 / 2762 Balance 2762 / 2762 Weight 79.379 kg Intake: IV 2762 / 2762 Zosyn 4.5 GM Premix 4.5 gm In 100 / 100 100 ml @ 200 mls/hr IV.SIG STAT STA Rx#:[id number] NS Inj 400 ML @ Wide Open IV. 2400 / 2400 SIG .Q0M MESSI Rx#:[id number] Vancomycin Inj 1,200 MG In NS 262 / 262 Inj 250 ML @ 250 mls/hr IV.SIG STAT STA Rx#:[id number] Narrative: Gen.: No acute distress Head: Normocephalic. Atraumatic. EENT: Pupils equal round and reactive to light. Nose without drainage. Airway intact. Throat without injection. Cardiovascular: Regular rate and rhythm. No murmurs, rubs or gallops. Respiratory: Lungs clear to auscultation bilaterally. No wheezes or rhonchi. Abdomen: Soft, nontender, nondistended. No peritoneal signs. Musculoskeletal: No gross deformities. No edema. Skin: No obvious rashes or erythema. No Janeway lesions or splinter hemorrhages. Neuro: Sensory and motor grossly intact. Cranial nerves II through XII grossly intact. Results - Labs CBC & Chem 7: 01/02/18 02:25 01/02/18 02:25 Labs: Laboratory Results - last 24 hr 01/02/18 01/02/18 01/02/18 02:20 02:25 02:25 WBC 6.5 RBC 4.61 Hgb 13.0 Hct 36.4 L MCV 79.0 L MCH 28.3 MCHC 35.8 RDW 16.5 Plt Count 124 L MPV 7.9 Neut % (Auto) 83.0 H Lymph % (Auto) 10.3 [place] % (Auto) 5.9 Eos % (Auto) 0.6 Baso % (Auto) 0.2 Neut # (Auto) 5.4 Lymph # (Auto) 0.7 L [place] # (Auto) 0.4 Eos # (Auto) 0.0 Baso # (Auto) 0.0 WBC Differential . Differential Comment Auto diff final Sodium 138 Potassium 3.9 Chloride 100 Carbon Dioxide 33.2 H Anion Gap 5 BUN 11 Creatinine 0.94 Estimated GFR 89 Random Glucose 109 H Lactic Acid 1.1 Calcium 9.1 Magnesium 2.0 Total Bilirubin 1.4 H AST 56 H ALT 56 Alkaline Phosphatase 155 H Total Protein 7.8 Albumin 3.7 Urine Color Urine Clarity Urine pH Ur Specific [place] Urine Protein Urine Glucose (UA) Urine Ketones Urine Occult Blood Urine Nitrate Urine Bilirubin Urine Urobilinogen Ur Leukocyte Esterase Urine RBC Urine Mucus Micro UA Comment Ur Microscopic Review Urine Culture Comments 01/02/18 04:00 WBC RBC Hgb Hct MCV MCH MCHC RDW Plt Count MPV Neut % (Auto) Lymph % (Auto) [place] % (Auto) Eos % (Auto) Baso % (Auto) Neut # (Auto) Lymph # (Auto) [place] # (Auto) Eos # (Auto) Baso # (Auto) WBC Differential Differential Comment Sodium Potassium Chloride Carbon Dioxide Anion Gap BUN Creatinine Estimated GFR Random Glucose Lactic Acid Calcium Magnesium Total Bilirubin AST ALT Alkaline Phosphatase Total Protein Albumin Urine Color Yellow Urine Clarity Clear Urine pH 6.0 Ur Specific [place] 1.019 Urine Protein Negative Urine Glucose (UA) Negative Urine Ketones Negative Urine Occult Blood Negative Urine Nitrate Negative Urine Bilirubin Negative Urine Urobilinogen 2.0 H Ur Leukocyte Esterase Negative Urine RBC Less than 1 Urine Mucus Few H Micro UA Comment Culture not ind Ur Microscopic Review Not Reportable Urine Culture Comments Culture not ind - Imaging Impressions Chest X-Ray 01/02/18 01:48 CONCLUSION: No acute cardiopulmonary disease identified. Caprini VTE Risk Assessment Caprini VTE Risk Assessment: No/Low Risk (score <= 1) Caprini Risk Assessment Model: Point Value = 1 Point Value = 2 Point Value = 3 Point Value = 5 Age 41-60 Minor surgery BMI > 25 kg/m2 Swollen legs Varicose veins or History of unexplained or recurrent spontaneous Oral contraceptives or hormone replacement Sepsis (< 1 month) Serious lung disease, including pneumonia (< 1 month) Abnormal pulmonary function Acute myocardial infarction Congestive heart failure (< 1 month) History of inflammatory bowel disease Medical patient at bed rest Age 61-74 Arthroscopic surgery Major open surgery (> 45 min) Laparoscopic surgery (> 45 min) Malignancy Confined to bed (> 72 hours) Immobilizing plaster cast Central venous access Age >= 75 History of VTE Family history of VTE Factor V Leiden Prothrombin [id number] Lupus anticoagulant Anticardiolipin antibodies Elevated serum homocysteine Heparin-induced thrombocytopenia Other congenital or acquired thrombophilia Stroke (< 1 month) Elective arthroplasty Hip, pelvis, or leg fracture Acute spinal cord injury (< 1 month) Prophylaxis Regimen: Total Risk Factor Score Risk Level Prophylaxis Regimen 0-1 Low Early ambulation 2 Moderate Order ONE of the following: *Sequential Compression Device (SCD) *Heparin 5000 units SQ BID 3-4 Higher Order ONE of the following medications: *Heparin 5000 units SQ TID *Enoxaparin/Lovenox 40 mg SQ daily (WT < 150 kg, CrCl > 30 mL/min) *Enoxaparin/Lovenox 30 mg SQ daily (WT < 150 kg, CrCl > 10-29 mL/min) *Enoxaparin/Lovenox 30 mg SQ BID (WT < 150 kg, CrCl > 30 mL/min) AND/OR *Sequential Compression Device (SCD) 5 or more Highest Order ONE of the following medications: *Heparin 5000 units SQ TID (Preferred with Epidurals) *Enoxaparin/Lovenox 40 mg SQ daily (WT < 150 kg, CrCl > 30 mL/min) *Enoxaparin/Lovenox 30 mg SQ daily (WT < 150 kg, CrCl > 10-29 mL/min) *Enoxaparin/Lovenox 30 mg SQ BID (WT < 150 kg, CrCl > 30 mL/min) AND *Sequential Compression Device (SCD) Assessment and Plan - Plan Assessment/plan: 1. IVDA Cannot exclude endocarditis given patient's shortness of breath, chest pain, IV drug abuse history, tachycardia and fever/chills Blood cultures pending Echo pending Vancomycin/Zosyn Anticipate discharge once cultures and echo result 2. Tooth pain Status post dental block in the ED Will need follow-up as an outpatient with dentist No visible drainable abscess present, pain likely secondary to broken tooth 3. Hepatitis C Follow-up as outpatient FEN Regular diet Electrolytes: Monitor and replete as needed
[2018-01-02] MEDS ORDERED: Piperacil/Tazo 3.375 GM Premix 50 ML IV.SIG SCH (05:00)
[2018-01-02] MEDS: Piperacil/Tazo 3.375 GM Premix 50 ML IV.SIG SCH ×3 (09:14→22:03)
[2018-01-02] MEDS: Vancomycin Inj 1,000 MG in Sodium Chlor 0.9% Inj 250 ML IV.SIG SCH ×2 (11:40→20:56)
--- NOTE | 2018-01-02 15:37 | ECHRPT ---
Indication: Sepsis Possible Endocarditis CONCLUSIONS Normal left ventricular size. Wall thickness is normal. The left ventricular systolic function is normal with an estimated ejection fraction in the range of 55-60%. Trace mitral valve regurgitation. There is trace tricuspid valve regurgitation. The estimated pulmonary arterial pressure is 23 mmHg. BP: / HR: Rhythm: MEASUREMENTS (Male / Female) Normal Values Technical Quality:Excellent 2D ECHO LV Diastolic Diameter PLAX 5.0 cm 4.2 - 5.9 / 3.9 - 5.3 cm LV Systolic Diameter PLAX 3.5 cm IVS Diastolic Thickness 0.9 cm 0.6 - 1.0 / 0.6 - 0.9 cm LVPW Diastolic Thickness 1.0 cm 0.6 - 1.0 / 0.6 - 0.9 cm LV Relative Wall Thickness 0.4 RV Internal Dim ED PLAX 2.8 cm LVOT Diameter 2.5 cm Aortic Root Diameter 3.1 cm LA Systolic Diameter LX 3.9 cm 3.0 - 4.0 / 2.7 - 3.8 cm M-MODE AV Cusp Separation MM 2.4 cm DOPPLER AV Peak Velocity 139.0 cm/s AV Peak Gradient 7.7 mmHg LVOT Peak Velocity 121.0 cm/s LVOT Peak Gradient 5.9 mmHg AV Area Cont Eq pk 4.3 cm Mitral E Point Velocity 83.9 cm/s Mitral A Point Velocity 68.1 cm/s Mitral E to A Ratio 1.2 LV E' Lateral Velocity 14.2 cm/s Mitral E to LV E' Lateral Ratio 5.9 LV E' Septal Velocity 13.1 cm/s Mitral E to LV E' Septal Ratio 6.4 TR Peak Velocity 183.0 cm/s TR Peak Gradient 13.4 mmHg Right Atrial Pressure 10.0 mmHg Pulmonary Artery Systolic Pressu 23.4 mmHg Right Ventricular Systolic Press 23.4 mmHg PV Peak Velocity 93.7 cm/s PV Peak Gradient 3.5 mmHg FINDINGS LEFT VENTRICLE Normal left ventricular size. Wall thickness is normal. The left ventricular systolic function is normal with an estimated ejection fraction in the range of 55-60%. RIGHT VENTRICLE Normal right ventricular size and systolic function. LEFT ATRIUM The left atrial size is normal. RIGHT ATRIUM The right atrial size is normal. ATRIAL SEPTUM Normal atrial septal thickness without atrial level shunting by limited color doppler interrogation. AORTA The aortic root and proximal ascending aorta are normal in size on limited imaging. MITRAL VALVE Trace mitral valve regurgitation. AORTIC VALVE Trileaflet aortic valve. No aortic valve stenosis or regurgitation. TRICUSPID VALVE There is trace tricuspid valve regurgitation. The estimated pulmonary arterial pressure is 23 mmHg. PULMONARY VALVE No pulmonary valve regurgitation or stenosis. VESSELS The inferior vena cava is normal in size. PERICARDIUM No pericardial effusion. Tony Smith MD (Electronically Signed) Final Date:02 January 2018 15:37
[2018-01-02] MEDS ORDERED: Ketorolac 10 MG Tablet PO SCH (18:00)
[2018-01-02] MEDS: Ketorolac 10 MG Tablet PO PRN (22:10)
--- NOTE | 2018-01-02 22:43 | ECG ---
Date Performed: 01/02/2018 Time Performed: 02:40:55 PTAGE: 42 years EKG: SINUS TACHYCARDIA ABNORMAL RHYTHM ECG PREVIOUS TRACING : 08/22/2016 00.26 Since the previous tracing, no significant change noted DOCTOR: Nikhil Mishra Interpretating Date/Time 01/02/2018 22:41:57
[2018-01-03] MEDS: Piperacil/Tazo 3.375 GM Premix 50 ML IV.SIG SCH ×3 (01:55→13:58)
[2018-01-03] MEDS ORDERED: Pharmacy Ordered Lab Info OTHER ONE (03:45)
[2018-01-03] MEDS: Ketorolac 10 MG Tablet PO PRN ×3 (04:35→23:44)
[2018-01-03] MEDS: Vancomycin Inj 1,000 MG in Sodium Chlor 0.9% Inj 250 ML IV.SIG SCH ×2 (04:37→11:42)
[2018-01-03 12:51] LABS: Amphetamine Screen,Urine Neg (Neg); Barbiturate Screen,Urine Neg (Neg); Cannabinoid Screen,Urine Pos (Neg); Cocaine Screen,Urine Neg (Neg)
[2018-01-03 13:04] LABS: Opiate Screen,Urine Pos (Neg)
[2018-01-03 13:51] LABS: Baso % (Auto) 0.4 % (0.0-2.0); Eos % (Auto) 0.6 % (0.0-4.0); Hematocrit 34.3 % (39.0-51.0); Hemoglobin 11.7 gm/dL (13.0-17.0); Lymph # (Auto) 1.4 th/mm3 (1.0-4.8); Lymph % (Auto) 25.1 % (9.0-44.0); Mean Corpuscular HGB Conc 34.1 % (32.0-36.0); Mean Corpuscular Hemoglobin 27.6 pg (27.0-34.0); Mean Corpuscular Volume 81.1 fL (80.0-100.0); Mean Platelet Volume 7.8 fL (7.0-11.0); Mono # (Auto) 0.3 th/mm3 (0.0-0.9); Mono % (Auto) 5.1 % (0.0-8.0); Neut # (Auto) 3.8 th/mm3 (1.8-7.7); Neut % (Auto) 68.8 % (16.0-70.0); Platelet Count 148 th/mm3 (150-450); Red Blood Count 4.23 mil/mm3 (4.50-5.90); Red Cell Distribution Width 16.5 % (11.6-17.2); White Blood Count 5.5 th/mm3 (4.0-11.0)
[2018-01-03] MEDS ORDERED: Methadone 10 MG Tablet PO ONE (14:00)
[2018-01-03 14:28] LABS: Anion Gap 7 meq/L (5-15); Blood Urea Nitrogen 10 mg/dL (7-18); Calcium 8.7 mg/dL (8.5-10.1); Carbon Dioxide 28.3 meq/L (21.0-32.0); Chloride 108 meq/L (98-107); Glomerular Filtration Rate Greater Than 89 mL/min (>89); Glucose,Random 126 mg/dL (74-106); Potassium 4.1 meq/L (3.5-5.1); Sodium 143 meq/L (136-145)
--- NOTE | 2018-01-03 14:35 | P.PN ---
Subjective Interval history: Patient seen sitting up in bed. He is anxious. Asks for stronger pain medication -tells me he is on scheduled pain medication. Reports that he continues to have fevers and chills. Tooth pain continues. No chest pain or shortness of breath. No nausea vomiting or diarrhea. Physical Exam Vital signs: Vital Signs 01/02/18 16:00 01/02/18 20:00 01/02/18 23:28 Temperature 98.3 F 97.6 F 98.5 F Pulse Rate 66 77 64 Respiratory Rate Blood Pressure 114/71 117/71 110/67 Pulse Oximetry 97 96 96 01/03/18 04:00 01/03/18 07:45 01/03/18 10:36 Temperature 97.8 F 98.2 F 98.1 F Pulse Rate 57 L 61 80 Respiratory Rate Blood Pressure 110/70 145/81 H 129/83 Pulse Oximetry 98 95 97 Intake & Output 01/02/18 01/03/18 01/03/18 18:59 06:59 18:59 Intake Total 350 / 350 600 / 600 300 / 300 Balance 350 / 350 600 / 600 300 / 300 Intake: IV 350 / 350 600 / 600 300 / 300 Zosyn 3.375 GM Premix 50 ML @ 100 / 100 100 / 100 50 / 50 100 mls/hr IV.SIG Q6H MESSI Rx#: [id number] Vancomycin Inj 1,000 MG In NS 250 / 250 500 / 500 250 / 250 Inj 250 ML @ 250 mls/hr IV.SIG Q8H MESSI Rx#:[id number] Other: # Voids 1 Date of Last Bowel Movement 12/31/17 12/31/17 Narrative: GENERAL: Well-nourished, well-developed adult male in no obvious distress. SKIN: Warm; mildly diaphoretic HEAD: Atraumatic. Normocephalic. CARDIOVASCULAR: Regular rate and rhythm. RESPIRATORY: No accessory muscle use. Clear to auscultation. Breath sounds equal bilaterally. GASTROINTESTINAL: Abdomen soft, non-tender, non-distended. Positive bowel sounds. MUSCULOSKELETAL: Extremities without clubbing, cyanosis, or edema. No obvious deformities. NEUROLOGICAL: Awake and alert. No obvious cranial nerve deficits. Motor grossly within normal limits. Normal speech. PSYCHIATRIC: Anxious, depressed. Somewhat manipulative. Results - Labs CBC & Chem 7: 01/03/18 13:38 01/02/18 02:25 Laboratory Results - last 24 hr 01/03/18 01/03/18 01/03/18 04:03 12:11 13:38 WBC 5.5 RBC 4.23 L Hgb 11.7 L Hct 34.3 L MCV 81.1 MCH 27.6 MCHC 34.1 RDW 16.5 Plt Count 148 L MPV 7.8 Neut % (Auto) 68.8 Lymph % (Auto) 25.1 [place] % (Auto) 5.1 Eos % (Auto) 0.6 Baso % (Auto) 0.4 Neut # (Auto) 3.8 Lymph # (Auto) 1.4 [place] # (Auto) 0.3 Eos # (Auto) 0.0 Baso # (Auto) 0.0 WBC Differential . Differential Comment Auto diff final Vancomycin Trough 11.0 H Urine Opiates Screen Pos H Ur Barbiturates Screen Neg Ur Amphetamines Screen Neg U Benzodiazepines Scrn Neg Urine Cocaine Screen Neg U Cannabinoids Screen Pos H Microbiology 01/02/18 02:15 Blood - Peripheral Aerobic Blood Culture - Preliminary No growth in 1 day 01/02/18 02:15 Blood - Peripheral Anaerobic Blood Culture - Preliminary No growth in 1 day 01/02/18 02:25 Blood - Peripheral Aerobic Blood Culture - Preliminary No growth in 1 day 01/02/18 02:25 Blood - Peripheral Anaerobic Blood Culture - Preliminary No growth in 1 day 01/02/18 02:20 Blood - Peripheral Aerobic Blood Culture - Preliminary No growth in 1 day 01/02/18 02:20 Blood - Peripheral Anaerobic Blood Culture - Preliminary No growth in 1 day Assessment and Plan - Assessment (1) Diaphoresis Code(s): R61 - Generalized hyperhidrosis Status: Acute (2) Fever and chills Code(s): R50.9 - Fever, unspecified Status: Acute (3) Toothache Code(s): K08.89 - Other specified disorders of teeth and supporting structures Status: Acute (4) Active intravenous drug use Code(s): F19.90 - Other psychoactive substance use, unspecified, uncomplicated Status: Chronic - Plan Assessment/plan: 1. Rule out endocarditis - IVDA with self reported fever and chills Cannot exclude endocarditis given patient's shortness of breath, chest pain, IV drug abuse history, tachycardia and fever/chills -Blood cultures pending; -Echo neg -Vancomycin/Zosyn - zosyn stopped 01/03 due to starting methadone 2. Tooth pain/poor dentition -Status post dental block in the ED -Will need follow-up as an outpatient with dentist -Limit pain control to nonnarcotic options due to history of IV drug use. 3. Elevated liver enzyme / reported Hepatitis C Follow-up as outpatient 4. Active IV drug user -Cessation counseled however this is unlikely to happen -Per [facility]: Patient was previously seen by pain management and on scheduled oxycodone until August 2017. Received 10 days of Suboxone in October. Patient says he never got the Suboxone because it was too expensive; this is in contradiction of the [employer] database. -Patient reports heroin use just prior to admission; complaining of withdrawal symptoms. Will start methadone. 5. Depression and anxiety -Patient making multiple suicidal statements to staff. Does give verbal contract for no self-harm while admitted. -Consult placed to psychiatry for evaluation DVT prophylaxis: Patient is ambulatory Discharge planning: Likely home
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
[2018-01-03] MEDS ORDERED: Amitriptyline 25 MG Tablet PO SCH (21:00)
[2018-01-03] MEDS: Vancomycin Inj 1,750 MG in Sodium Chlor 0.9% Inj 500 ML IV.SIG SCH (23:40)
[2018-01-04] MEDS: Ketorolac 10 MG Tablet PO PRN (12:32)
[2018-01-04] MEDS: Vancomycin Inj 1,750 MG in Sodium Chlor 0.9% Inj 500 ML IV.SIG SCH (12:49)
--- NOTE | 2018-01-04 14:15 | P.PN ---
Subjective Interval history: Patient is seen lying quietly in bed. Reports that he is still withdrawing and feeling some shakiness and sweatiness from that. No chills. Tooth is still somewhat painful. Physical Exam Vital signs: Vital Signs 01/03/18 16:00 01/03/18 20:00 01/03/18 23:29 Temperature 98.3 F 97.9 F 97.6 F Pulse Rate 68 78 68 Respiratory Rate 16 16 18 Blood Pressure 135/90 123/68 108/71 Pulse Oximetry 97 95 94 L 01/04/18 04:00 01/04/18 08:00 01/04/18 12:00 Temperature 98.3 F 97.8 F 98.8 F Pulse Rate 51 L 58 L 59 L Respiratory Rate 18 16 14 Blood Pressure 94/61 L 113/72 123/74 Pulse Oximetry 94 L 94 L 96 Intake & Output 01/03/18 01/04/18 01/04/18 18:59 06:59 18:59 Intake Total 350 / 350 1717.5 / 1717.5 Output Total 500 / 500 Balance 350 / 350 1717.5 / 1717.5 -500 / -500 Intake: IV 350 / 350 517.5 / 517.5 Zosyn 3.375 GM Premix 50 ML @ 100 / 100 100 mls/hr IV.SIG Q6H MESSI Rx#: [id number] Vancomycin Inj 1,000 MG In NS 250 / 250 Inj 250 ML @ 250 mls/hr IV.SIG Q8H MESSI Rx#:[id number] Vancomycin Inj 1,750 MG In NS 517.5 / 517.5 Inj 500 ML @ 250 mls/hr IV.SIG Q12H MESSI Rx#:[id number] Oral 1200 / 1200 Output: Urine 500 / 500 Other: # Voids 2 Date of Last Bowel Movement 01/03/18 # Bowel Movements 1 Narrative: GENERAL: Well-nourished, well-developed adult male in no obvious distress. SKIN: Warm; mildly diaphoretic HEAD: Atraumatic. Normocephalic. CARDIOVASCULAR: Regular rate and rhythm. RESPIRATORY: No accessory muscle use. Clear to auscultation. Breath sounds equal bilaterally. GASTROINTESTINAL: Abdomen soft, non-tender, non-distended. Positive bowel sounds. MUSCULOSKELETAL: Extremities without clubbing, cyanosis, or edema. No obvious deformities. NEUROLOGICAL: Awake and alert. No obvious cranial nerve deficits. Motor grossly within normal limits. Normal speech. PSYCHIATRIC: Anxious, depressed. Somewhat manipulative. Results - Labs CBC & Chem 7: 01/03/18 13:38 01/03/18 13:38 Laboratory Results - last 24 hr 01/03/18 13:38 Sodium 143 Potassium 4.1 Chloride 108 H D Carbon Dioxide 28.3 Anion Gap 7 BUN 10 Creatinine 0.91 Estimated GFR Greater than 89 Random Glucose 126 H Calcium 8.7 Microbiology 01/02/18 02:15 Blood - Peripheral Aerobic Blood Culture - Preliminary No growth in 2 days 01/02/18 02:15 Blood - Peripheral Anaerobic Blood Culture - Preliminary No growth in 2 days 01/02/18 02:25 Blood - Peripheral Aerobic Blood Culture - Preliminary No growth in 2 days 01/02/18 02:25 Blood - Peripheral Anaerobic Blood Culture - Preliminary No growth in 2 days 01/02/18 02:20 Blood - Peripheral Aerobic Blood Culture - Preliminary No growth in 2 days 01/02/18 02:20 Blood - Peripheral Anaerobic Blood Culture - Preliminary No growth in 2 days Assessment and Plan - Assessment (1) Diaphoresis Code(s): R61 - Generalized hyperhidrosis Status: Resolved (2) Fever and chills Code(s): R50.9 - Fever, unspecified Status: Resolved (3) Toothache Code(s): K08.89 - Other specified disorders of teeth and supporting structures Status: Acute (4) Active intravenous drug use Code(s): F19.90 - Other psychoactive substance use, unspecified, uncomplicated Status: Chronic - Plan Assessment/plan: 1. Rule out endocarditis - IVDA with self reported fever and chills Cannot exclude endocarditis given patient's shortness of breath, chest pain, IV drug abuse history, tachycardia and fever/chills -Blood cultures no growth x 2 days; -Echo neg -Vancomycin/Zosyn - zosyn stopped 01/03 due to starting methadone 2. Tooth pain/poor dentition -Status post dental block in the ED -Will need follow-up as an outpatient with dentist -Limit pain control to nonnarcotic options due to history of IV drug use. 3. Elevated liver enzyme / reported Hepatitis C Follow-up as outpatient 4. Active IV drug user -Cessation counseled however this is unlikely to happen -Per [facility]: Patient was previously seen by pain management and on scheduled oxycodone until August 2017. Received 10 days of Suboxone in October. Patient says he never got the Suboxone because it was too expensive; this is in contradiction of the [facility] database. -Patient reports heroin use just prior to admission; complaining of withdrawal symptoms. Will start methadone. 5. Depression and anxiety -Patient making multiple suicidal statements to staff. Does give verbal contract for no self-harm while admitted. No Cain act per psych -Consult placed to psychiatry for evaluation - added Elavil DVT prophylaxis: Patient is ambulatory Discharge planning: Likely home
--- NOTE | 2018-01-04 14:37 | P.DS ---
Date of admission: 01/02/18 03:22 Primary care physician: No Primary Care Physician Attending physician on discharge: Bety Arias Anticipated date of discharge: 01/04/18 Brief History from admission: 42-year-old male with a past medical history significant for asthma, chronic back pain, hepatitis C and IV drug abuse presents to the emergency department for the evaluation of left lower tooth pain. The patient reports that he has a history of abscess on that tooth that previously drained on its own. He reports the abscess and pressure is back. He says he has had accompanying fevers and chills. He also endorses heart palpitations and shortness of breath. Complains of an achy chest pain. No abdominal pain. No nausea/ vomiting/diarrhea. No focal deficits. Back pain at chronic level. DS: Diagnosis - Discharge Diagnosis (1) Diaphoresis Status: Resolved (2) Fever and chills Status: Resolved (3) Toothache Status: Acute (4) Active intravenous drug use Status: Chronic DS: Medications - Discharge Medications Prescriptions: amitriptyline 25 mg PO HS #30 tab amoxicillin 250 mg PO TID #21 cap DS: Summary Hospital Course: 1. Rule out endocarditis - IVDA with self reported fever and chills - resolved - no indication of endocarditis Cannot exclude endocarditis given patient's shortness of breath, chest pain, IV drug abuse history, tachycardia and fever/chills -Blood cultures no growth x 2 days; -Echo neg -Vancomycin/Zosyn - zosyn stopped 01/03 due to starting methadone 2. Tooth pain/poor dentition -acute -Status post dental block in the ED -Will need follow-up as an outpatient with dentist; discharged with amoxicillin Rx -Limit pain control to nonnarcotic options due to history of IV drug use. 3. Elevated liver enzyme / reported Hepatitis C -acute Follow-up as outpatient -patient educated on the importance of treating hep C in order to prevent chronic liver disease. 4. Active IV drug user - chronic -Cessation counseled however this is unlikely to happen -Per [facility]: Patient was previously seen by pain management and on scheduled oxycodone until August 2017. Received 10 days of Suboxone in October. Patient says he never got the Suboxone because it was too expensive; this is in contradiction of the [facility] database. -Patient reports heroin use just prior to admission; complaining of withdrawal symptoms. Will start methadone. 5. Depression and anxiety - chronic -Patient making multiple suicidal statements to staff. Does give verbal contract for no self-harm while admitted. No Cain act per psych -Consult placed to psychiatry for evaluation - added amitriptyline; Rx given at discharge - Time Spent with Patient Total time spent providing and/or coordinating discharge services: Less than 30 minutes - Quality: VTE Deep Vein Thrombosis/Pulmonary Embolism Present on Admission: No Exam Vital signs: Vital Signs 01/03/18 16:00 01/03/18 20:00 01/03/18 23:29 Temperature 98.3 F 97.9 F 97.6 F Pulse Rate 68 78 68 Respiratory Rate 16 16 18 Blood Pressure 135/90 123/68 108/71 Pulse Oximetry 97 95 94 L 01/04/18 04:00 01/04/18 08:00 01/04/18 12:00 Temperature 98.3 F 97.8 F 98.8 F Pulse Rate 51 L 58 L 59 L Respiratory Rate 18 16 14 Blood Pressure 94/61 L 113/72 123/74 Pulse Oximetry 94 L 94 L 96 Intake & Output 01/03/18 01/04/18 01/04/18 18:59 06:59 18:59 Intake Total 350 / 350 1717.5 / 1717.5 Output Total 500 / 500 Balance 350 / 350 1717.5 / 1717.5 -500 / -500 Intake: IV 350 / 350 517.5 / 517.5 Zosyn 3.375 GM Premix 50 ML @ 100 / 100 100 mls/hr IV.SIG Q6H [facility] Rx#: [id number] Vancomycin Inj 1,000 MG In NS 250 / 250 Inj 250 ML @ 250 mls/hr IV.SIG Q8H [facility] Rx#:[id number] Vancomycin Inj 1,750 MG In NS 517.5 / 517.5 Inj 500 ML @ 250 mls/hr IV.SIG Q12H [facility] Rx#:[id number] Oral 1200 / 1200 Output: Urine 500 / 500 Other: # Voids 2 Date of Last Bowel Movement 01/03/18 # Bowel Movements 1 Narrative: GENERAL: Well-nourished, well-developed adult male in no obvious distress. SKIN: Warm; mildly diaphoretic HEAD: Atraumatic. Normocephalic. CARDIOVASCULAR: Regular rate and rhythm. RESPIRATORY: No accessory muscle use. Clear to auscultation. Breath sounds equal bilaterally. GASTROINTESTINAL: Abdomen soft, non-tender, non-distended. Positive bowel sounds. MUSCULOSKELETAL: Extremities without clubbing, cyanosis, or edema. No obvious deformities. NEUROLOGICAL: Awake and alert. No obvious cranial nerve deficits. Motor grossly within normal limits. Normal speech. PSYCHIATRIC: Anxious, depressed. Somewhat manipulative. Results Procedures completed during hospitalization: none Labs on day of discharge: Labs from last 24 hours 01/03/18 13:38 Sodium 143 Potassium 4.1 Chloride 108 H D Carbon Dioxide 28.3 Anion Gap 7 BUN 10 Creatinine 0.91 Estimated GFR Greater than 89 Random Glucose 126 H Calcium 8.7 Preliminary micro results at discharge 01/02/18 02:15 Aerobic Blood Culture - Preliminary Blood - Peripheral No growth in 2 days Anaerobic Blood Culture - Preliminary No growth in 2 days 01/02/18 02:25 Aerobic Blood Culture - Preliminary Blood - Peripheral No growth in 2 days Anaerobic Blood Culture - Preliminary No growth in 2 days 01/02/18 02:20 Aerobic Blood Culture - Preliminary Blood - Peripheral No growth in 2 days Anaerobic Blood Culture - Preliminary No growth in 2 days - Impressions ITS Impressions Chest X-Ray 01/02/18 01:48 CONCLUSION: No acute cardiopulmonary disease identified. Discharge Plan - Discharge Disposition Patient Disposition: Discharge Home - Discharge Condition Condition: Stable - Discharge Order Discharge Orders: Discharge Order (Routine); Ordered 01/04/18 Ordered By: Alie Singleton - Physicians Team Primary Care Provider: Primary Care Tiki Holt Attending Provider: Bety Arias Other Providers: Aashish Olson MD
[2018-01-04] MEDS ORDERED: Buprenorphine/Naloxone 8/2 MG Sublingual Tablet SL ONE (14:55)
[2018-01-05] MEDS ORDERED: Pharmacy Ordered Lab Info OTHER ONE (10:45)
[2018-01-05] MEDS ORDERED: Amoxicillin 250 MG Capsule PO SCH (18:00)
== END 2018-01-04 16:14 | disposition home or self-care (01) ==
LOC: NEPE 01:05 → NEDA 01:05 → NEPGCP 05:04
PROVIDERS: ADMIT Hospitalist; ATTEND Hospitalist